=== PATIENT | female | born 1950 | race Caucasian/White ===

== ENCOUNTER 2020-09-12 10:09 | Day surgery (SDC) | payer OTHER ==
[2020-08-12 09:56] VITALS: BMI 27.4
[2020-09-12 10:28] VITALS: TEMP 98.4
[2020-09-12 12:34] VITALS: BP 121/73; PULSE 83
== END 2020-09-12 12:34 | disposition home or self-care (01) ==
LOC: FASU-ENDO 10:09
PROVIDERS: ATTEND Internal Medicine Gastroenterology
PROC: 0DBN8ZX Excision of Sigmoid Colon, Via Natural or Artificial Opening Endoscopic, Diagnostic (ICD-10-PCS; principal; 2020-09-12 11:38)
DX: Z12.11 Encounter for screening for malignant neoplasm of colon (principal); D12.5 Benign neoplasm of sigmoid colon; Z85.038 Personal history of other malignant neoplasm of large intestine; Z98.0 Intestinal bypass and anastomosis status
CPT/HCPCS: 88305-TC